=== PATIENT | female | born 2000 | race African-American/Black ===

== ENCOUNTER → 2019-05-08 | Outpatient (CLI) | payer OTHER ==
--- NOTE | 2019-05-08 17:40 | RADIOLOGY REPORT (SQ) ---
EXAM DESCRIPTION: DUPLEX ART/ANGEL FLOW COMPLETE COMPLETED DATE/TIME: 05/08/2019 8:04 am REASON FOR STUDY: LUIS (I70.1) I70.1 ATHEROSCLEROSIS OF RENAL ARTERY COMPARISON: None. TECHNIQUE: Realtime and static grayscale images acquired. Selected color Doppler, velocities and spe ctral images recorded. LIMITATIONS: None. FINDINGS: RIGHT KIDNEY: RENAL ARTERY VELOCITIES: 288 cm/sec. Segmental artery velocity 64 cm/sec. RENAL VEIN: Color doppler flow present, patent. VELOCITY RATIO: 1.7. Normal waveforms. KIDNEY: Normal size. No significant pathology. LEFT KIDNEY: RENAL ARTERY VELOCITIES: 92 cm/sec. Segmental artery velocity 64 cm/sec. RENAL VEIN: Color doppler flow present, patent. VELOCITY RATIO: 0.6. Normal waveforms. KIDNEY: Normal size. No significant pathology. BLADDER: Normal. OTHER: No other significant finding. IMPRESSION: NO DOPPLER EVIDENCE OF HEMODYNAMICALLY SIGNIFICANT RENAL ARTERY STENOSIS. COMMENT: NORMAL RENAL ARTERY/AORTA VELOCITY RATIO IS LESS THAN OR EQUAL TO 3.5. TECHNICAL DOCUMENTATION: JOB ID: [id number] [employer]- All Rights Reserved Reading location - IP/workstation name: [email or web address]
== END ==
LOC: RAD 07:12
PROVIDERS: ATTEND Nurse Practitioner Family
DX: I70.1 Atherosclerosis of renal artery (principal)
CPT/HCPCS: 93975